=== PATIENT | female | born 1985 | race Caucasian/White ===

== ENCOUNTER 2016-12-17 10:51 | Emergency (ER) | payer OTHER ==
--- NOTE | 2016-12-17 11:12 | EDM.PDOC ---
ED HPI GENERAL MEDICAL PROBLEM - General Chief Complaint: Lower Extremity Injury/Pain Stated Complaint: HURT RIGHT FOOT Time Seen by Provider: 12/17/16 11:11 Source of Information: Reports: Patient - History of Present Illness INITIAL COMMENTS - FREE TEXT/NARRATIVE: HISTORY AND PHYSICAL: History of present illness: Patient with right foot pain unable bear weight due to pain rates 5 out of 10 nonradiating denies injury or trauma, pain has been present for 1 week increasing in severity. Patient predominantly worse flip-flop type shoes pain is been getting worse over the last week as stated x-ray and lab are negative. There is component or possibility of plantar fasciitis however over the last week intensive been continuous and worse with any weightbearing not necessarily related to the first heel strike of the day. She does note some improvement throughout the night after being off of her foot but has a PE pain immediately on walking and then continuous throughout the day toward now she is unable to bear weight due to pain. No fever nausea vomiting chills sweats Review of systems: As per history of present illness and below otherwise all systems reviewed and negative. Past medical history: As per history of present illness and as reviewed below otherwise noncontributory. Surgical history: As per history of present illness and as reviewed below otherwise noncontributory. Social history: No reported history of drug or alcohol abuse. Family history: As per history of present illness and as reviewed below otherwise noncontributory. Physical exam: HEENT: Atraumatic, normocephalic, pupils reactive, negative for conjunctival pallor or scleral icterus, mucous membranes moist, throat clear, neck supple, nontender, trachea midline. Lungs: Clear to auscultation, breath sounds equal bilaterally, chest nontender. Heart: S1S2, regular, negative for clicks, rubs, or JVD. Abdomen: Soft, nondistended, nontender. Negative for masses or hepatosplenomegaly. Negative for costovertebral tenderness. Pelvis: Stable nontender. Genitourinary: Deferred. Rectal: Deferred. Extremities: Atraumatic, negative for cords or calf pain. Neurovascular unremarkable. Neuro: Awake, alert, oriented. Cranial nerves II through XII unremarkable. Cerebellum unremarkable. Motor and sensory unremarkable throughout. Exam nonfocal. Right foot unaffected above the ankle tender across the dorsum and plantar surface the exception his heel and toes are no pain associated with heel and toes no redness warmth or exudate entirely neurovascularly intact, she is tender with pressure applied to the plantar tendon sheath Diagnostics: []Right foot 3 views CBC, uric acid Therapeutics: []Crutches as needed Ibuprofen 400-800 mg 3 times daily 7-10 days Follow-up with podiatry Appropriate quality footwear as discussed Return if symptoms persist or worse Impression: []Right foot pain Definitive disposition and diagnosis as appropriate pending reevaluation and review of above. Right Feet Pain Score (Numeric/FACES): 6 - Related Data Allergies Allergy/AdvReac Type Severity Reaction Status Date / Time No Known Allergies Allergy Verified 12/17/16 11:00 Home Meds: Home Meds . 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 Musculoskeletal History: Reports: None Neurological History: Reports: None Psychiatric History: Reports: None Endocrine/Metabolic History: Reports: None Hematologic History: Reports: None Immunologic History: Reports: None Oncologic (Cancer) History: Reports: None Dermatologic History: Reports: None - Infectious Disease History Infectious Disease History: Reports: Chicken Pox - Past Surgical History Head Surgeries/Procedures: Reports: None HEENT Surgical History: Reports: None Cardiovascular Surgical History: Reports: None Respiratory Surgical History: Reports: None GI Surgical History: Reports: None Female Surgical History: Reports: None Endocrine Surgical History: Reports: None Neurological Surgical History: Reports: None Musculoskeletal Surgical History: Reports: None Dermatological Surgical History: Reports: None Social & Family History - Family History Family Medical History: Noncontributory - Tobacco Use Smoking Status *Q: Never Smoker - Caffeine Use Caffeine Use: Reports: None - Recreational Drug Use Recreational Drug Use: No Review of Systems - Review of Systems Review Of Systems: ROS reveals no pertinent complaints other than HPI. ED EXAM, GENERAL - Physical Exam Exam: See Below Course - Vital Signs Last Recorded V/S: Last Vital Signs Temp 36.1 C 12/17/16 11:00 Pulse 97 12/17/16 11:00 Resp 18 12/17/16 11:00 BP 123/78 12/17/16 11:00 Pulse Ox 99 12/17/16 11:00 - Orders/Labs/Meds Orders: Active Orders 24 hr Category Date Time Status Foot Comp Min 3V Rt [CR] Stat Exams 12/17/16 11:10 Taken Labs: Laboratory Tests 12/17/16 12/17/16 Range/Units 11:17 11:17 WBC 7.84 (4.0-11.0) K/uL RBC 4.44 (4.30-5.90) M/uL Hgb 13.5 (12.0-16.0) g/dL Hct 39.7 (36.0-46.0) % MCV 89.4 (80.0-98.0) fL MCH 30.4 (27.0-32.0) pg MCHC 34.0 (31.0-37.0) g/dL RDW Std Deviation 40.7 (28.0-62.0) fl RDW Coeff of Norberto 13 (11.0-15.0) % Plt Count 255 (150-400) K/uL MPV 9.60 (7.40-12.00) fL Nucleated RBC % 0.0 /100WBC Nucleated RBCs # 0 K/uL Uric Acid 3.9 (2.1-6.2) mg/dL Departure - Departure Time of Disposition: 12:03 Disposition: Home, Self-Care 01 Condition: Good Clinical Impression: Foot pain, Plantar fasciitis of right foot - Discharge Information Referrals: PCP,None [Primary Care Provider] - Forms: ED Department Discharge Additional Instructions: Quality footwear with good arch support Crutches to use as needed Ibuprofen 400 mg by mouth 3 times daily 7-10 days 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 This information is to outline your options for follow-up care. We provide all patients seen in our emergency department with a follow-up referral. The need for follow-up, as well as the timing and circumstances, are variable depending upon the specifics of your emergency department visit. If you don't have a primary care physician on staff, we will provide you with a referral. We always advise you to contact your personal physician following an emergency department visit to inform them of the circumstance of the visit and for follow-up with them and/or the need for any referrals to a consulting specialist. The emergency department will also refer you to a specialist when appropriate. This referral assures that you have the opportunity for follow-up care with a specialist. All of these measure are taken in an effort to provide you with optimal care, which includes your follow-up. Under all circumstances we always encourage you to contact your private physician who remains a resource for coordinating your care. When calling for follow-up care, please make the office aware that this follow-up is from your recent emergency room visit. If for any reason you are refused follow-up, please contact the [facility] emergency department at and asked to speak to the emergency department charge nurse. - My Orders Last 24 Hours: My Active Orders 12/17/16 11:10 Foot Comp Min 3V Rt [CR] Stat - Assessment/Plan Last 24 Hours: My Active Orders 12/17/16 11:10 Foot Comp Min 3V Rt [CR] Stat
[2016-12-17 12:13] VITALS: BP 117/68
--- NOTE | 2016-12-20 13:20 | CR ---
EXAM DATE: 12/17/16 PATIENT'S AGE: 31 Patient: MALINDA ARTEAGA Facility: [place], [place] Site . Site : 1985 Study: XRay Extremity Right [id number]/2/2017 11:45:37 AM Ordering Physician: Иван Espinoza Final Report: Indication: Pain. Technique: Three views. Impression: Negative. Dictated by Mansoor Tolbert MD @ Dec 17 2016 11:47AM (Electronic Signature) Report Signed by Proxy. [facility]
== END 2016-12-17 12:11 | disposition home or self-care (01) ==
LOC: MW.ED 10:51
DX: M72.2 Plantar fascial fibromatosis (principal)
CPT/HCPCS: 36415; 73630-26-RT; 73630-RT; 84550; 85027; 99282; 99283

== ENCOUNTER 2017-06-11 20:33 | Emergency (ER) | payer OTHER ==
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
[2017-06-11 21:15] VITALS: BP 131/92
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
== END 2017-06-11 20:48 | disposition other institution (70) ==
LOC: MW.ED 20:33 → MW.OB 21:02
DX: O9A.213 Injury, poisoning and certain other consequences of external causes complicating pregnancy, third trimester (principal); S00.511A Abrasion of lip, initial encounter; V49.9XXA Car occupant (driver) (passenger) injured in unspecified traffic accident, initial encounter; Y92.410 Unspecified street and highway as the place of occurrence of the external cause; Z3A.29 29 weeks gestation of pregnancy
CPT/HCPCS: 76805; 76805-26; 99283; 99285-25

== ENCOUNTER 2017-08-20 01:30 | Inpatient (IN) | payer OTHER ==
[2017-08-20] MEDS ORDERED: Misoprostol 200 MCG Tab PO PRN (01:39)
[2017-08-20] MEDS ORDERED: Nalbuphine 10 MG/1 ML Vial IVPUSH PRN (01:39)
[2017-08-20] MEDS ORDERED: Sodium Chloride 0.9% 10 ML Syringe FLUSH PRN (01:39)
[2017-08-20] MEDS ORDERED: Methylergonovine 0.2 MG/1 ML Amp IM PRN (01:39)
[2017-08-20] MEDS ORDERED: Tranexamic Acid 1,000 MG in Sodium Chloride 0.9% 100 ML IV PRN (01:39)
[2017-08-20] MEDS ORDERED: Sodium Chloride 0.9% 2.5 ML Syringe FLUSH PRN (01:39)
[2017-08-20] MEDS ORDERED: Lidocaine 1% 50 ML MDV INJECT PRN (01:39)
[2017-08-20] MEDS ORDERED: Terbutaline 1 MG/ML SDV SUBCUT PRN (01:39)
[2017-08-20] MEDS ORDERED: Carboprost Tromethamine 250 MCG/1 ML Amp IM PRN (01:39)
[2017-08-20] MEDS ORDERED: Water For Irrigation,Sterile 1,000 ML Container IRR PRN (01:39)
[2017-08-20] MEDS ORDERED: Oxytocin/0.9 % Sodium Chloride 30 UNIT/500 ML BAG IV SCH ×2 (01:45)
[2017-08-20] MEDS: Misoprostol 25 MCG (1/4 of 100 MCG) Tab PO PRN ×2 (02:32→10:32)
[2017-08-20] MEDS: Misoprostol 25 MCG (1/4 of 100 MCG) Tab VAG PRN ×2 (02:32→10:32)
[2017-08-20] MEDS ORDERED: Butorphanol 1 MG/ML SDV ONE (06:56)
[2017-08-20] MEDS: Butorphanol 1 MG/ML SDV IVPUSH PRN ×2 (07:08→13:38)
--- NOTE | 2017-08-20 10:03 | PCM.LDHP ---
L&D History of Present Illness - General Date of Service: 08/20/17 Admit Problem/Dx: Patient Status Order with Admit Dx/Problem 08/20/17 01:39 Patient Status [ADT] Routine Admission Diagnosis/Problem Admission Diagnosis/Problem - planned Source of Information: Patient History Limitations: Reports: No Limitations - History of Present Illness Pain Score: 7 Improves with: Reports: None Worsens with: Reports: None Associated Symptoms: Reports: N - Related Data Allergies/Adverse Reactions: Allergies Allergy/AdvReac Type Severity Reaction Status Date / Time No Known Allergies Allergy Verified 08/20/17 03:42 Home Medications: Home Meds #103/Iron Fumarate/Fa [ ] 1 tab PO DAILY 06/11/17 [ History] Sertraline [Zoloft] 25 mg PO DAILY 08/20/17 [History] Past Medical History HEENT History: Reports: None Cardiovascular History: Reports: None Respiratory History: Reports: None Gastrointestinal History: Reports: None Genitourinary History: Reports: None 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: Musculoskeletal History: Reports: None Neurological History: Reports: None Psychiatric History: Reports: Other (See Below) Other Psychiatric History: depression Endocrine/Metabolic History: Reports: None Hematologic History: Reports: None Immunologic History: Reports: None Oncologic (Cancer) History: Reports: None Dermatologic History: Reports: None - Infectious Disease History Infectious Disease History: Reports: Chicken Pox - Past Surgical History Head Surgeries/Procedures: Reports: None HEENT Surgical History: Reports: Other (See Below) Other HEENT Surgeries/Procedures: Humble teeth extraction Cardiovascular Surgical History: Reports: None Respiratory Surgical History: Reports: None GI Surgical History: Reports: None Female Surgical History: Reports: None Endocrine Surgical History: Reports: None Neurological Surgical History: Reports: None Musculoskeletal Surgical History: Reports: None Dermatological Surgical History: Reports: None Social & Family History - Family History Family Medical History: Noncontributory Cardiac: Reports: Hypertension, [place] Endocrine/Metabolic: Reports: Diabetes, Type I, Diabetes, type II Oncologic: Reports: Renal - Tobacco Use Smoking Status *Q: Former Smoker Used Tobacco, but Quit: Yes Month/Year Tobacco Last Used: 2013 Second Hand Smoke Exposure: No - Caffeine Use Caffeine Use: Reports: Coffee, Energy Drinks, Tea - Recreational Drug Use Recreational Drug Use: No H&P Review of Systems - Review of Systems: Review Of Systems: See Below General: Reports: No Symptoms HEENT: Reports: No Symptoms Pulmonary: Reports: No Symptoms Cardiovascular: Reports: No Symptoms Gastrointestinal: Reports: No Symptoms Genitourinary: Reports: No Symptoms Musculoskeletal: Reports: No Symptoms Skin: Reports: No Symptoms Psychiatric: Reports: No Symptoms Neurological: Reports: No Symptoms Hematologic/Lymphatic: Reports: No Symptoms Immunologic: Reports: No Symptoms L&D Exam - Exam Exam: See Below - Vital Signs Weight: 99.337 kg - OB Specific Contraction Intensity: Mild Movement: Active Heart Tones: Present Presentation: Vertex - Rojas Score Rojas Score Cervix Position: Midposition Rojas Score Consistency: Soft Rojas Score Effacement: 51-70% Rojas Score Dilation: 1-2 cm Rojas Score Infant's Station: -3 Rojas Score Total: 6 - Exam General: Alert, Oriented HEENT: PERRLA, Conjunctiva Clear, EACs Clear, EOMI, Hearing Intact, Mucosa Moist & Mackay, Nares Patent, Normal Nasal Septum, Posterior Pharynx Clear, TMs Clear Neck: Supple, Trachea Midline Lungs: Clear to Auscultation, Normal Respiratory Effort Cardiovascular: Regular Rate, Regular Rhythm GI/Abdominal Exam: Normal Bowel Sounds, Soft, Non-Tender, No Organomegaly, No Distention, No Abnormal Bruit, No Mass, Pelvis Stable Rectal Exam: Normal Exam, Normal Rectal Tone Genitourinary: Normal external exam, Normal bimanual exam, Normal speculum exam Back Exam: Normal Inspection, Full Range of Motion Extremities: Normal Inspection, Normal Range of Motion, Non-Tender, No Pedal Edema, Normal Capillary Refill Skin: Warm, Dry, Intact Neurological: Cranial Nerves Intact, Reflexes Equal Bilateral Psychiatric: Alert, Normal Affect, Normal Mood - Patient Data Lab Results Last 24 hrs: Laboratory Results - last 24 hr 08/20/17 08/20/17 Range/Units 02:00 02:00 WBC 11.77 H (4.0-11.0) K/uL RBC 3.63 L (4.30-5.90) M/uL Hgb 10.5 L (12.0-16.0) g/dL Hct 31.6 L (36.0-46.0) % MCV 87.1 (80.0-98.0) fL MCH 28.9 (27.0-32.0) pg MCHC 33.2 (31.0-37.0) g/dL RDW Std Deviation 42.6 (28.0-62.0) fl RDW Coeff of Norberto 14 (11.0-15.0) % Plt Count 183 (150-400) K/uL MPV 11.20 (7.40-12.00) fL Nucleated RBC % 0.0 /100WBC Nucleated RBCs # 0 K/uL Blood Type O NEGATIVE Antibody Screen NEGATIVE Result Diagrams: 08/20/17 02:00 Problem List Initiated/Reviewed/Updated: Yes Orders Last 24hrs: Active Orders 24 hr Category Date Time Status Patient Status [ADT] Routine ADT 08/20/17 01:39 Active Bedrest Bathroom Privileges [RC] ASDIRECTED Care 08/20/17 01:39 Active Communication Order [RC] ASDIRECTED Care 08/20/17 01:39 Active Communication Order [RC] ASDIRECTED Care 08/20/17 01:39 Active Communication Order [RC] ASDIRECTED Care 08/20/17 01:39 Active Heart Tones [RC] CONTINUOUS Care 08/20/17 01:39 Active Non Stress Test [RC] PER UNIT ROUTINE Care 08/20/17 01:39 Active May Shower [RC] ASDIRECTED Care 08/20/17 01:39 Active Notify Provider [RC] PRN Care 08/20/17 01:39 Active Notify Provider [RC] PRN Care 08/20/17 01:39 Active Notify Provider [RC] PRN Care 08/20/17 01:39 Active Notify Provider [RC] STAT Care 08/20/17 01:39 Active Oxygen Therapy [RC] ASDIRECTED Care 08/20/17 01:39 Active Up ad Yessica [RC] ASDIRECTED Care 08/20/17 01:39 Active Vaginal Exam [RC] PRN Care 08/20/17 01:39 Active Vaginal Exam [RC] PRN Care 08/20/17 01:39 Active Vital Signs [RC] PER UNIT ROUTINE Care 08/20/17 01:39 Active Vital Signs [RC] PER UNIT ROUTINE Care 08/20/17 01:39 Active Clear Liquid Diet [DIET] Diet 08/20/17 Breakfast Active Butorphanol [Stadol] Med 08/20/17 06:44 Active 1 mg IVPUSH Q1H PRN Carboprost Tromethamine [Hemabate DS] Med 08/20/17 01:39 Active 250 mcg IM ASDIRECTED PRN Lactated Ringers [Ringers, Lactated] 1,000 ml Med 08/20/17 01:45 Active IV ASDIRECTED Lidocaine 1% [Xylocaine 1%] Med 08/20/17 01:39 Active 50 ml INJECT .ONCE PRN Methylergonovine [Methergine] Med 08/20/17 01:39 Active 0.2 mg IM ASDIRECTED PRN Misoprostol [Cytotec] Med 08/20/17 01:39 Active 200 mcg PO .ONCE PRN Misoprostol [Cytotec] Med 08/20/17 02:15 Active 25 mcg PO Q4H PRN Misoprostol [Cytotec] Med 08/20/17 02:15 Active 25 mcg VAG Q4H PRN Nalbuphine [Nubain] Med 08/20/17 01:39 Active 10 mg IVPUSH Q1H PRN Oxytocin/0.9 % Sodium Chloride [Oxytocin 30 Unit/500 ML Med 08/20/17 01:45 Active -NS] 30 unit in 500 ml IV TITRATE Oxytocin/0.9 % Sodium Chloride [Oxytocin 30 Unit/500 ML Med 08/20/17 01:45 Active -NS] 30 unit in 500 ml IV TITRATE Sodium Chloride 0.9% [Saline Flush] Med 08/20/17 01:39 Active 10 ml FLUSH ASDIRECTED PRN Sodium Chloride 0.9% [Saline Flush] Med 08/20/17 01:39 Active 2.5 ml FLUSH ASDIRECTED PRN Terbutaline [Brethine] Med 08/20/17 01:39 Active 0.25 mg SUBCUT ASDIRECTED PRN Tranexamic Acid [Cyklokapron] 1,000 mg Med 08/20/17 01:39 Active Sodium Chloride 0.9% [Normal Saline] 100 ml IV ONETIME Water For Irrigation,Sterile [Sterile Water for Med 08/20/17 01:39 Active Irrigation] 1,000 ml IRR ASDIRECTED PRN Scalp Electrode [WOMSER] Per Unit Routine Oth 08/20/17 01:39 Ordered Medication Administration Instruction [OM.PC] Q3H Oth 08/20/17 01:45 Ordered Peripheral IV Insertion Adult [OM.PC] Routine Oth 08/20/17 01:39 Ordered Resuscitation Status Routine Resus Stat 08/20/17 01:39 Ordered Medication Orders Butorphanol Tartrate (Stadol) 1 mg IVPUSH Q1H PRN PRN Reason: Pain Last Admin: 08/20/17 07:08 Dose: 1 mg Carboprost Tromethamine (Hemabate Ds) 250 mcg IM ASDIRECTED PRN PRN Reason: Post Hemorrhage Lactated Ringer's (Ringers, Lactated) 1,000 mls @ 150 mls/hr IV ASDIRECTED FAY Oxytocin/Sodium Chloride (Oxytocin 30 Unit/500 Ml-Ns) 30 unit in 500 mls @ 250 mls/hr IV TITRATE FAY Oxytocin/Sodium Chloride (Oxytocin 30 Unit/500 Ml-Ns) 30 unit in 500 mls @ 2 mls/hr IV TITRATE FAY; Protocol Tranexamic Acid 1,000 mg/ (Sodium Chloride) 110 mls @ 660 mls/hr IV ONETIME PRN PRN Reason: Bleeding Lidocaine HCl (Xylocaine 1%) 50 ml INJECT .ONCE PRN PRN Reason: Laceration repair Methylergonovine Maleate (Methergine) 0.2 mg IM ASDIRECTED PRN PRN Reason: Post Hemorrhage Misoprostol (Cytotec) 200 mcg PO .ONCE PRN PRN Reason: Post Hemorrhage Misoprostol (Cytotec) 25 mcg VAG Q4H PRN PRN Reason: Cervical Ripening Last Admin: 08/20/17 02:32 Dose: 25 mcg Misoprostol (Cytotec) 25 mcg PO Q4H PRN PRN Reason: Cervical Ripening Last Admin: 08/20/17 02:32 Dose: 25 mcg Nalbuphine HCl (Nubain) 10 mg IVPUSH Q1H PRN PRN Reason: Pain (severe 7-10) Sodium Chloride (Saline Flush) 10 ml FLUSH ASDIRECTED PRN PRN Reason: Keep Vein Open Sodium Chloride (Saline Flush) 2.5 ml FLUSH ASDIRECTED PRN PRN Reason: Keep Vein Open Sterile Water (Sterile Water For Irrigation) 1,000 ml IRR ASDIRECTED PRN PRN Reason: delivery Terbutaline Sulfate (Brethine) 0.25 mg SUBCUT ASDIRECTED PRN PRN Reason: Tacysystole
[2017-08-20] MEDS: Lactated Ringers 1,000 ML IV SCH ×2 (15:00→16:10)
[2017-08-20] MEDS ORDERED: fentaNYL 100 MCG/2 ML SDV ONE (15:33)
[2017-08-20] MEDS ORDERED: Bupivacaine 0.25% 10 ML SDV ONE (15:33)
--- NOTE | 2017-08-20 17:24 | PCM.PREANE ---
Preanesthetic Assessment - Anesthesia/Transfusion/Family Hx Anesthesia History: Prior Anesthesia Without Reaction Family History of Anesthesia Reaction: No Transfusion History: No Prior Transfusion(s) - Review of Systems General: No Symptoms Pulmonary: No Symptoms Cardiovascular: No Symptoms Gastrointestinal: No Symptoms Neurological: No Symptoms Other: Reports: Depression, Anxiety - Physical Assessment NPO Status Date: 08/20/17 NPO Status Time: 15:00 (clear liquids) Pulse: 86 O2 Sat by Pulse Oximetry: 99 Respiratory Rate: 20 Blood Pressure: 133/92 (contraction) Height: 1.65 m Weight: 99.337 kg ASA Class: 2 - Lab Values: Laboratory Last Values WBC 11.77 K/uL (4.0-11.0) H 08/20/17 02:00 RBC 3.63 M/uL (4.30-5.90) L 08/20/17 02:00 Hgb 10.5 g/dL (12.0-16.0) L 08/20/17 02:00 Hct 31.6 % (36.0-46.0) L 08/20/17 02:00 MCV 87.1 fL (80.0-98.0) 08/20/17 02:00 MCH 28.9 pg (27.0-32.0) 08/20/17 02:00 MCHC 33.2 g/dL (31.0-37.0) 08/20/17 02:00 RDW Std Deviation 42.6 fl (28.0-62.0) 08/20/17 02:00 RDW Coeff of Norberto 14 % (11.0-15.0) 08/20/17 02:00 Plt Count 183 K/uL (150-400) 08/20/17 02:00 MPV 11.20 fL (7.40-12.00) 08/20/17 02:00 Nucleated RBC % 0.0 /100WBC 08/20/17 02:00 Nucleated RBCs # 0 K/uL 08/20/17 02:00 Blood Type O NEGATIVE 08/20/17 02:00 Antibody Screen NEGATIVE 08/20/17 02:00 - Allergies Allergies/Adverse Reactions: Allergies Allergy/AdvReac Type Severity Reaction Status Date / Time No Known Allergies Allergy Verified 08/20/17 03:42 PreAnesthesia Questionnaire HEENT History: Reports: None Cardiovascular History: Reports: None Respiratory History: Reports: None Gastrointestinal History: Reports: None Genitourinary History: Reports: None 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 OB/BYN History: Musculoskeletal History: Reports: None Neurological History: Reports: None Psychiatric History: Reports: Other (See Below) Other Psychiatric History: depression Endocrine/Metabolic History: Reports: None Hematologic History: Reports: None Immunologic History: Reports: None Oncologic (Cancer) History: Reports: None Dermatologic History: Reports: None - Infectious Disease History Infectious Disease History: Reports: Chicken Pox - Past Surgical History Head Surgeries/Procedures: Reports: None HEENT Surgical History: Reports: Other (See Below) Other HEENT Surgeries/Procedures: [place] teeth extraction Cardiovascular Surgical History: Reports: None Respiratory Surgical History: Reports: None GI Surgical History: Reports: None Female Surgical History: Reports: None Endocrine Surgical History: Reports: None Neurological Surgical History: Reports: None Musculoskeletal Surgical History: Reports: None Dermatological Surgical History: Reports: None - SUBSTANCE USE Smoking Status *Q: Former Smoker Tobacco Use Within Last Twelve Months: No Second Hand Smoke Exposure: No Recreational Drug Use History: No - HOME MEDS Home Medications: Home Meds #103/Iron Fumarate/Fa [ ] 1 tab PO DAILY 06/11/17 [ History] Sertraline [Zoloft] 25 mg PO DAILY 08/20/17 [History] - CURRENT (IN HOUSE) MEDS Current Meds: Current Medications Carboprost Tromethamine (Hemabate Ds) 250 mcg IM ASDIRECTED PRN PRN Reason: Post Hemorrhage Lactated Ringer's (Ringers, Lactated) 1,000 mls @ 150 mls/hr IV ASDIRECTED FAY Last Admin: 08/20/17 16:10 Dose: 150 mls/hr Oxytocin/Sodium Chloride (Oxytocin 30 Unit/500 Ml-Ns) 30 unit in 500 mls @ 250 mls/hr IV TITRATE FAY Oxytocin/Sodium Chloride (Oxytocin 30 Unit/500 Ml-Ns) 30 unit in 500 mls @ 2 mls/hr IV TITRATE FAY; Protocol Tranexamic Acid 1,000 mg/ (Sodium Chloride) 110 mls @ 660 mls/hr IV ONETIME PRN PRN Reason: Bleeding Lidocaine HCl (Xylocaine 1%) 50 ml INJECT .ONCE PRN PRN Reason: Laceration repair Methylergonovine Maleate (Methergine) 0.2 mg IM ASDIRECTED PRN PRN Reason: Post Hemorrhage Misoprostol (Cytotec) 200 mcg PO .ONCE PRN PRN Reason: Post Hemorrhage Misoprostol (Cytotec) 25 mcg VAG Q4H PRN PRN Reason: Cervical Ripening Last Admin: 08/20/17 10:32 Dose: 25 mcg Misoprostol (Cytotec) 25 mcg PO Q4H PRN PRN Reason: Cervical Ripening Last Admin: 08/20/17 10:32 Dose: 25 mcg Nalbuphine HCl (Nubain) 10 mg IVPUSH Q1H PRN PRN Reason: Pain (severe 7-10) Sodium Chloride (Saline Flush) 10 ml FLUSH ASDIRECTED PRN PRN Reason: Keep Vein Open Sodium Chloride (Saline Flush) 2.5 ml FLUSH ASDIRECTED PRN PRN Reason: Keep Vein Open Sterile Water (Sterile Water For Irrigation) 1,000 ml IRR ASDIRECTED PRN PRN Reason: delivery Terbutaline Sulfate (Brethine) 0.25 mg SUBCUT ASDIRECTED PRN PRN Reason: Tacysystole Discontinued Medications Bupivacaine HCl (Sensorcaine-Mpf 0.25%) Confirm Administered Dose 10 ml .ROUTE .STK-MED ONE Stop: 08/20/17 15:34 Butorphanol Tartrate (Stadol) 1 mg IVPUSH Q1H PRN PRN Reason: Pain Last Admin: 08/20/17 13:38 Dose: 1 mg Butorphanol Tartrate (Stadol) Confirm Administered Dose 1 mg .ROUTE .STK-MED ONE Stop: 08/20/17 06:57 Fentanyl (Sublimaze) Confirm Administered Dose 100 mcg .ROUTE .STK-MED ONE Stop: 08/20/17 15:34 Fentanyl/Bupivacaine HCl (Gfmepklf-Mfgfx-Cs 2 Mcg/Ml-0.125%) Confirm Administered Dose 100 mls @ as directed EP .STK-MED ONE Stop: 08/20/17 15:34
--- NOTE | 2017-08-20 18:01 | PCM.SN ---
- Free Text/Narrative Note: in active labor, dilated 2-3cm request epidural for analgesia. Chart reviewed, labs acceptable, discussed, ? answered, understands risks and benefits. Wishes to proceed. Permit signed. Patient positioned sitting. Prep X 3 with Betadine Space ID'd via ELLA with 1ml NaCl/1ml air. 15:42 Catheter to 9cm without issues. Negative aspiration. 15:44 Test dose with 1.5% Lidocaine + 1:200K epi 4ml. Test negative 15:46 Bolus dose 6ml 0.25% bupivicaine + 100mcg Fentanyl over 3 minutes. 15:51-54 Epidural gtt started at 8ml/hr 6ml/bolus q10 4/hr max. 16:00 Tolerated well. Good analgesia. 16:10 BP 90/57 patient nauseated. Fluid bolus in progress. Epidural OFF. BP slowly back to 110 systolic. Epidural remained off. Block level ~ T8. Patient to complete. Stable. Requested to remain on standby.
[2017-08-20] MEDS ORDERED: Lanolin 100% Cream 7 GM Tube TOP PRN ×2 (18:22→19:30)
[2017-08-20] MEDS ORDERED: Ondansetron 4 MG/2 ML SDV IV PRN (18:22)
[2017-08-20] MEDS ORDERED: Acetaminophen/oxyCODONE 325-5 MG Tab PO PRN ×2 (18:22)
[2017-08-20] MEDS ORDERED: Bisacodyl 10 MG Supp RECTAL PRN ×2 (18:22→19:30)
[2017-08-20] MEDS ORDERED: diphenhydrAMINE 50 MG/ML SDV IVPUSH PRN (18:22)
[2017-08-20] MEDS ORDERED: Oxytocin 10 Units/1 ML SDV ONE (18:24)
[2017-08-20] MEDS ORDERED: Ketorolac 30 MG/ML SDV IVPUSH SCH (18:30)
[2017-08-20] MEDS ORDERED: Lactated Ringers 1,000 ML IV SCH (18:30)
[2017-08-20] MEDS ORDERED: Witch Hazel Medicated Pads 40/Jar TOP PRN (19:30)
[2017-08-20] MEDS ORDERED: Benzocaine/Menthol 20%-0.5% Spray 78 GM Cannister TOP PRN (19:30)
[2017-08-20] MEDS ORDERED: oxyCODONE 5 MG Tab PO PRN (19:30)
[2017-08-20] MEDS ORDERED: Docusate Sodium 100 MG Cap PO PRN (19:30)
[2017-08-20] MEDS ORDERED: Ibuprofen 400 MG Tab PO PRN (19:30)
[2017-08-20] MEDS ORDERED: Acetaminophen 500 MG Tab PO PRN ×2 (19:30)
[2017-08-20] MEDS ORDERED: Docusate Sodium 100 MG Cap PO SCH (21:00)
[2017-08-20] MEDS: Ibuprofen 800 MG Tab PO PRN (21:12)
--- NOTE | 2017-08-21 00:12 | OR ---
SURGEON: Jairo Quintana MD DATE OF PROCEDURE: DELIVERY NOTE Ms. Gonzalez is 31. She is para 1-0-0-1, previous normal spontaneous vaginal delivery. She is 39+ weeks. She is followed in our clinic primarily by our nurse personnel analyst. She is admitted for elective induction. The patient induced with Cytotec. She responded well to that and she had an artificial rupture of the membrane around 1:30 and then she continued to progress in labor. She had epidural anesthesia for labor analgesia. She became complete around 4:30 and the patient commenced pushing. Talita Garcia, the certified nurse personnel analyst and she has attended the delivery. The patient is pushed in excess of an hour and I was called to evaluate the patient because of insufficient pushings and for possible vacuum extraction. When I came and arrived, heart rate was category 1. Her vital sign was stable, the patient was vertex complete-complete and in straight OA position, and she is +2 station. After consulting with the patient and explaining the vacuum, she consented for it. [place] vacuum extraction is performed and with one push, the patient was able to deliver vaginally female fetus, cried immediately. The score reported to be 8 and 9 and the weight is not available at this time. The placenta delivered spontaneous, complete, and intact. There was a superficial labial laceration on the left labia and that was repaired by Talita Garcia without any problem. Estimated blood loss is 300 to 350 mL. There was no complication in the and in the labor process. heart rate was category 1 through the entire process of labor and delivery. KEITH / ROLF /[id number]
[2017-08-21] MEDS: Ibuprofen 800 MG Tab PO PRN (03:39)
--- NOTE | 2017-08-21 07:13 | PCM48HPAN ---
Post Anesthesia Note - EVALUATION WITHIN 48HRS OF ANESTHETIC Vital Signs in Normal Range: Yes Patient Participated in Evaluation: Yes Respiratory Function Stable: Yes Airway Patent: Yes Cardiovascular Function Stable: Yes Hydration Status Stable: Yes Pain Control Satisfactory: Yes Nausea and Vomiting Control Satisfactory: Yes Mental Status Recovered: Yes Pulse Rate: 88 Resp Rate: 16 Blood Pressure: 133/86 - COMMENTS/OBSERVATIONS Free Text/Narrative:: Doing well. No problems noted.
--- NOTE | 2017-08-21 08:18 | PCM.DCSUM1 ---
Discharge Summary - Hospital Course Free Text/Narrative:: Discharge home with infant. Follow up in 6 weeks or sooner if needed. - Discharge Data Discharge Date: 08/21/17 Discharge Disposition: Home, Self-Care 01 Condition: Good - Discharge Diagnosis/Problem(s) (1) Supervision of normal IUP (intrauterine ) in multigravida SNOMED Code(s): 315819733, [id number], 926381090 ICD Code: Z34.80 - ENCOUNTER FOR SUPRVSN OF NORMAL , UNSP TRIMESTER Status: Acute Priority: High Current Visit: Yes Qualifiers: Trimester: third trimester Qualified Code(s): Z34.83 - Encounter for supervision of other normal , third trimester (2) (normal spontaneous vaginal delivery) SNOMED Code(s): 12125144 ICD Code: O80 - ENCOUNTER FOR FULL-TERM UNCOMPLICATED DELIVERY Status: Acute Priority: High Current Visit: Yes - Patient Instructions Diet: Usual Diet as Tolerated Activity: As Tolerated, No Strenuous Activities, Rest and Relax Today Driving: May Drive Today Showering/Bathing: May Shower Wound/Incision Care: Keep Operative Site/Wound Site Clean and Dry Notify Provider of: Fever, Increased Pain, Swelling and Redness, Nausea and/or Vomiting Other/Special Instructions: Discharge home with infant. Follow up in 6 weeks or sooner if needed. - Discharge Plan Home Medications: Home Meds #103/Iron Fumarate/Fa [ ] 1 tab PO DAILY 06/11/17 [ History] Sertraline [Zoloft] 25 mg PO DAILY 08/20/17 [History] - General Info Date of Service: 08/21/17 Admission Dx/Problem (Free Text: Patient Status Order with Admit Dx/Problem 08/20/17 01:39 Patient Status [ADT] Routine Admission Diagnosis/Problem Admission Diagnosis/Problem - planned Functional Status: Reports: Pain Controlled, Tolerating Diet, Ambulating, Urinating - Review of Systems General: Reports: No Symptoms HEENT: Reports: No Symptoms Pulmonary: Reports: No Symptoms Cardiovascular: Reports: No Symptoms Gastrointestinal: Reports: No Symptoms Genitourinary: Reports: No Symptoms Musculoskeletal: Reports: No Symptoms Skin: Reports: No Symptoms Neurological: Reports: No Symptoms Psychiatric: Reports: No Symptoms - Patient Data Vitals - Most Recent: Last Vital Signs Temp 36.6 C 08/21/17 03:30 Pulse 88 08/21/17 07:13 Resp 16 08/21/17 07:13 BP 133/86 08/21/17 07:13 Pulse Ox 97 08/21/17 03:30 Weight - Most Recent: 99.337 kg Lab Results - Last 24 hrs: Laboratory Results - last 24 hr 08/20/17 Range/Units 20:28 Screen NEGATIVE (NEGATIVE) RhIG Candidate? YES Rhogam Indicated YES, BABY RH POS H Med Orders - Current: Current Medications Acetaminophen (Tylenol Extra Strength) 500 mg PO Q4H PRN PRN Reason: Pain Acetaminophen (Tylenol Extra Strength) 1,000 mg PO Q4H PRN PRN Reason: Pain Benzocaine/Menthol (Dermoplast Pain Relief 20%-0.5% [place]) 78 gm TOP ASDIRECTED PRN PRN Reason: Perineal Comfort Measure Last Admin: 08/20/17 19:46 Dose: 1 canister Bisacodyl (Dulcolax) 10 mg RECTAL .ONCE PRN PRN Reason: Constipation Carboprost Tromethamine (Hemabate Ds) 250 mcg IM ASDIRECTED PRN PRN Reason: Post Hemorrhage Docusate Sodium (Colace) 100 mg PO BID PRN PRN Reason: Constipation Last Admin: 08/20/17 19:45 Dose: 100 mg Emollient Ointment (Lansinoh Hpa) 0 gm TOP ASDIRECTED PRN PRN Reason: Sore Nipples Last Admin: 08/20/17 22:53 Dose: 1 tube Lactated Ringer's (Ringers, Lactated) 1,000 mls @ 150 mls/hr IV ASDIRECTED FAY Last Admin: 08/20/17 16:10 Dose: 150 mls/hr Oxytocin/Sodium Chloride (Oxytocin 30 Unit/500 Ml-Ns) 30 unit in 500 mls @ 250 mls/hr IV TITRATE FAY Oxytocin/Sodium Chloride (Oxytocin 30 Unit/500 Ml-Ns) 30 unit in 500 mls @ 2 mls/hr IV TITRATE FAY; Protocol Tranexamic Acid 1,000 mg/ (Sodium Chloride) 110 mls @ 660 mls/hr IV ONETIME PRN PRN Reason: Bleeding Ibuprofen (Motrin) 400 mg PO Q4H PRN PRN Reason: Pain Ibuprofen (Motrin) 800 mg PO Q6H PRN PRN Reason: Pain Last Admin: 08/21/17 03:39 Dose: 800 mg Lidocaine HCl (Xylocaine 1%) 50 ml INJECT .ONCE PRN PRN Reason: Laceration repair Methylergonovine Maleate (Methergine) 0.2 mg IM ASDIRECTED PRN PRN Reason: Post Hemorrhage Misoprostol (Cytotec) 200 mcg PO .ONCE PRN PRN Reason: Post Hemorrhage Misoprostol (Cytotec) 25 mcg VAG Q4H PRN PRN Reason: Cervical Ripening Last Admin: 08/20/17 10:32 Dose: 25 mcg Misoprostol (Cytotec) 25 mcg PO Q4H PRN PRN Reason: Cervical Ripening Last Admin: 08/20/17 10:32 Dose: 25 mcg Nalbuphine HCl (Nubain) 10 mg IVPUSH Q1H PRN PRN Reason: Pain (severe 7-10) Oxycodone HCl (Oxycodone) 5 mg PO Q2H PRN PRN Reason: Pain Sodium Chloride (Saline Flush) 10 ml FLUSH ASDIRECTED PRN PRN Reason: Keep Vein Open Sodium Chloride (Saline Flush) 2.5 ml FLUSH ASDIRECTED PRN PRN Reason: Keep Vein Open Sterile Water (Sterile Water For Irrigation) 1,000 ml IRR ASDIRECTED PRN PRN Reason: delivery Terbutaline Sulfate (Brethine) 0.25 mg SUBCUT ASDIRECTED PRN PRN Reason: Tacysystole Witch Catherine (Tucks) 1 pad TOP ASDIRECTED PRN PRN Reason: comfort care Last Admin: 08/20/17 19:45 Dose: 1 tub Discontinued Medications Bupivacaine HCl (Sensorcaine-Mpf 0.25%) Confirm Administered Dose 10 ml .ROUTE .STK-MED ONE Stop: 08/20/17 15:34 Butorphanol Tartrate (Stadol) 1 mg IVPUSH Q1H PRN PRN Reason: Pain Last Admin: 08/20/17 13:38 Dose: 1 mg Butorphanol Tartrate (Stadol) Confirm Administered Dose 1 mg .ROUTE .STK-MED ONE Stop: 08/20/17 06:57 Fentanyl (Sublimaze) Confirm Administered Dose 100 mcg .ROUTE .STK-MED ONE Stop: 08/20/17 15:34 Fentanyl/Bupivacaine HCl (Gztxxejy-Cwbwj-My 2 Mcg/Ml-0.125%) Confirm Administered Dose 100 mls @ as directed EP .STK-MED ONE Stop: 08/20/17 15:34 Oxytocin (Pitocin) Confirm Administered Dose 10 unit .ROUTE .STK-MED ONE Stop: 08/20/17 18:25 Last Admin: 08/20/17 18:23 Dose: 10 unit - Exam General: Reports: Alert, Oriented, Cooperative, No Acute Distress Lungs: Reports: Normal Respiratory Effort GI/Abdominal Exam: Normal Bowel Sounds, Soft, Non-Tender, No Organomegaly, No Distention, No Abnormal Bruit, No Mass, Pelvis Stable (Female) Exam: Vaginal Bleeding Rectal (Female) Exam: Deferred Back Exam: Reports: Normal Inspection Extremities: Normal Inspection, Normal Range of Motion, Non-Tender, No Pedal Edema, Normal Capillary Refill Skin: Reports: Warm, Dry, Intact Wound/Incisions: Reports: Healing Well Neurological: Reports: No New Focal Deficit, Normal Speech, Normal Tone Psy/Mental Status: Reports: Alert, Normal Affect, Normal Mood
[2017-08-21 11:33] VITALS: BP 132/71
[2017-08-21] MEDS ORDERED: Ibuprofen 800 MG Tab PO PRN (20:00)
== END 2017-08-21 22:00 | disposition home or self-care (01) | DRG 775 ==
LOC: MW.OBCHECK 01:30 → MW.OB 01:34 → MW.OBCHECK 01:39 → OBSVTOIN 18:18
PROVIDERS: ADMIT Obstetrics & Gynecology; ATTEND Obstetrics & Gynecology
PROC: 10D07Z6 Extraction of Products of Conception, Vacuum, Via Natural or Artificial Opening (ICD-10-PCS; principal; 2017-08-20)
PROC: 3E0P7VZ Introduction of Hormone into Female Reproductive, Via Natural or Artificial Opening (ICD-10-PCS; 2017-08-20)
PROC: 10907ZC Drainage of Amniotic Fluid, Therapeutic from Products of Conception, Via Natural or Artificial Opening (ICD-10-PCS; 2017-08-20)
PROC: 0HQ9XZZ Repair Perineum Skin, External Approach (ICD-10-PCS; 2017-08-20)
DX: O70.0 First degree perineal laceration during delivery (principal); Z3A.39 39 weeks gestation of pregnancy; Z37.0 Single live birth
CPT/HCPCS: 36415; 59025; 59409; 85027; 85460; 86850; 86900; 86901; A9270-GY; J0595; J2590; J2790; J7120

== ENCOUNTER 2018-08-02 08:03 | Day surgery (SDC) | payer BC ==
[~2018-08-02 08:03] MED LIST: Lactated Ringers 1,000 ML IV SCH
[2018-08-02] MEDS ORDERED: fentaNYL 250 MCG/5 ML SDV ONE (08:43)
[2018-08-02] MEDS ORDERED: Midazolam 1 MG/ML 2 ML SDV ONE (08:43)
[2018-08-02] MEDS ORDERED: Lidocaine 2% 5 ML SDV ONE (08:43)
[2018-08-02] MEDS ORDERED: Propofol 200 MG/20 ML SDV ONE (08:43)
[2018-08-02] MEDS ORDERED: Ondansetron 4 MG/2 ML SDV ONE (08:43)
--- NOTE | 2018-08-02 08:43 | PCM.PREANE ---
Preanesthetic Assessment - Anesthesia/Transfusion/Family Hx Anesthesia History: Prior Anesthesia Without Reaction Family History of Anesthesia Reaction: No Transfusion History: No Prior Transfusion(s) - Review of Systems General: No Symptoms Pulmonary: No Symptoms Cardiovascular: No Symptoms Gastrointestinal: No Symptoms Neurological: No Symptoms Other: Reports: None - Physical Assessment O2 Sat by Pulse Oximetry: 96 Respiratory Rate: 16 Vital Signs: Last Vital Signs Temp 96.6 F 08/02/18 08:25 Pulse 87 08/02/18 08:25 Resp 16 08/02/18 08:25 BP 117/76 08/02/18 08:25 Pulse Ox 96 08/02/18 08:25 Height: 5 ft 5 in Weight: 88.451 kg ASA Class: 1 Mental Status: Alert & Oriented x3 Airway Class: Mallampati = 2 Dentition: Reports: Normal Dentition ROM/Head Extension: Full Lungs: Clear to Auscultation, Normal Respiratory Effort Cardiovascular: Regular Rate, Regular Rhythm - Allergies Allergies/Adverse Reactions: Allergies Allergy/AdvReac Type Severity Reaction Status Date / Time No Known Allergies Allergy Verified 07/30/18 15:34 - Blood Blood Available: No - Anesthesia Plan Pre-Op Medication Ordered: None - Acknowledgements Anesthesia Type Planned: General Anesthesia Pt an Appropriate Candidate for the Planned Anesthesia: Yes Alternatives and Risks of Anesthesia Discussed w Pt/Guardian: Yes Pt/Guardian Understands and Agrees with Anesthesia Plan: Yes PreAnesthesia Questionnaire HEENT History: Reports: Other (See Below) Other HEENT History: wears glasses Cardiovascular History: Reports: None Respiratory History: Reports: None Gastrointestinal History: Reports: None Genitourinary History: Reports: None 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/BYN History: Musculoskeletal History: Reports: None Neurological History: Reports: Other (See Below) Other Neuro History: hx of motion sickness Psychiatric History: Reports: Other (See Below) Other Psychiatric History: depression Endocrine/Metabolic History: Reports: Obesity/BMI 30+ Hematologic History: Reports: None Immunologic History: Reports: None Oncologic (Cancer) History: Reports: None Dermatologic History: Reports: None - Infectious Disease History Infectious Disease History: Reports: Chicken Pox - Past Surgical History Head Surgeries/Procedures: Reports: None HEENT Surgical History: Reports: Oral Surgery Other HEENT Surgeries/Procedures: wisdom teeth - SUBSTANCE USE Smoking Status *Q: Former Smoker Tobacco Use Within Last Twelve Months: Cigarettes Recreational Drug Use History: No - HOME MEDS Home Medications: Home Meds Ibuprofen [Motrin] 800 mg PO ASDIRECTED PRN 07/30/18 [History] - CURRENT (IN HOUSE) MEDS Current Meds: Current Medications Lactated Ringer's (Ringers, Lactated) 1,000 mls @ 100 mls/hr IV ASDIRECTED FAY
[2018-08-02] MEDS ORDERED: Sodium Chloride 0.9% 10 ML SDV IV PRN (08:59)
[2018-08-02] MEDS ORDERED: Atropine 0.1 MG/ML 10 ML Syringe IVPUSH PRN ×2 (08:59)
[2018-08-02] MEDS ORDERED: 50% Dextrose in Water 50 ML Syringe IVPUSH PRN (08:59)
[2018-08-02] MEDS ORDERED: fentaNYL 100 MCG/2 ML SDV IVPUSH PRN (08:59)
[2018-08-02] MEDS ORDERED: Sodium Chloride 0.9% 10 ML Syringe FLUSH PRN (08:59)
[2018-08-02] MEDS ORDERED: Naloxone 0.4 MG/ML Syringe IVPUSH PRN (08:59)
[2018-08-02] MEDS ORDERED: Sodium Chloride 0.9% 2.5 ML Syringe FLUSH PRN (08:59)
[2018-08-02] MEDS ORDERED: Albuterol 0.083% 2.5 MG/3 ML Neb Soln NEB PRN (08:59)
[2018-08-02] MEDS ORDERED: EPINEPHrine 1:10,000 1 MG/10 ML Syringe IVPUSH PRN (08:59)
--- NOTE | 2018-08-02 11:08 | PCM.POSTAN ---
POST ANESTHESIA ASSESSMENT - MENTAL STATUS Mental Status: Alert, Oriented - RESPIRATORY Respiratory Status: Respiratory Rate WNL, Airway Patent, O2 Saturation Stable - CARDIOVASCULAR CV Status: Pulse Rate WNL, Blood Pressure Stable - GASTROINTESTINAL GI Status: No Symptoms - PAIN Pain Score: 0 - POST OP HYDRATION Hydration Status: Adequate & Stable
--- NOTE | 2018-08-02 11:16 | PCM48HPAN ---
Post Anesthesia Note - EVALUATION WITHIN 48HRS OF ANESTHETIC Vital Signs in Normal Range: Yes Patient Participated in Evaluation: Yes Respiratory Function Stable: Yes Airway Patent: Yes Cardiovascular Function Stable: Yes Hydration Status Stable: Yes Pain Control Satisfactory: Yes Nausea and Vomiting Control Satisfactory: Yes Mental Status Recovered: Yes Resp Rate: 12
--- NOTE | 2018-08-02 11:16 | CR ---
EXAMINATION: Abdomen HISTORY: IUD COMPARISON: None TECHNIQUE: AP view FINDINGS: There is an IUD projecting over the pelvis. There is a nonobstructive bowel gas pattern. No abnormal calcifications. Visualized osseous structures appear normal. IMPRESSION: 1. IUD projecting over the mid pelvis.
[2018-08-02 11:32] VITALS: BP 111/73
[2018-08-02] MEDS ORDERED: Ketorolac 30 MG/ML SDV IVPUSH ONE (11:56)
[2018-08-02] MEDS ORDERED: Acetaminophen/oxyCODONE 325-5 MG Tab PO PRN ×2 (11:56)
[2018-08-02] MEDS ORDERED: Promethazine 25 MG/ML SDV IM PRN (11:56)
[2018-08-02] MEDS ORDERED: Ketorolac 30 MG/ML SDV IVPUSH PRN (11:56)
[2018-08-02] MEDS ORDERED: Morphine 4 MG/ML Syringe IVPUSH PRN (11:56)
[2018-08-02] MEDS ORDERED: Ondansetron 4 MG/2 ML SDV IVPUSH PRN (11:56)
--- NOTE | 2018-08-02 12:01 | PCM.OPNOTE ---
- General Post-Op/Procedure Note Date of Surgery/Procedure: 08/02/18 Operative Procedure(s): Hystroscopy Pre Op Diagnosis: Lost IUD Post-Op Diagnosis: Same Anesthesia Technique: General LMA Primary Surgeon: Jairo Quintana EBL in mLs: 25 Complications: None Condition: Good Free Text/Narrative:: Intake & Output 08/01/18 08/02/18 08/02/18 22:59 06:59 14:59 Intake Total 800 Output Total 30 Balance 770
--- NOTE | 2018-08-02 12:02 | PCM.DCSUM1 ---
Discharge Summary - Hospital Course Diagnosis: Stroke: No - Discharge Data Discharge Date: 08/02/18 Discharge Disposition: Home, Self-Care 01 Condition: Good - Patient Summary/Data Operative Procedure(s) Performed: Hystroscopy - Patient Instructions Diet: Usual Diet as Tolerated, Regular Diet as Tolerated Activity: As Tolerated, Rest and Relax Today Driving: Do Not Drive Showering/Bathing: May Shower Notify Provider of: Fever, Increased Pain - Discharge Plan Home Medications: Home Meds Ibuprofen [Motrin] 800 mg PO ASDIRECTED PRN 07/30/18 [History] - Discharge Summary/Plan Comment DC Time >30 min.: Yes - General Info Date of Service: 08/02/18 Functional Status: Reports: Pain Controlled - Review of Systems General: Reports: No Symptoms HEENT: Reports: No Symptoms Pulmonary: Reports: No Symptoms Cardiovascular: Reports: No Symptoms Gastrointestinal: Reports: No Symptoms Genitourinary: Reports: No Symptoms Musculoskeletal: Reports: No Symptoms Skin: Reports: No Symptoms Neurological: Reports: No Symptoms Psychiatric: Reports: No Symptoms - Patient Data Vitals - Most Recent: Last Vital Signs Temp 36.0 C 08/02/18 11:15 Pulse 66 08/02/18 11:15 Resp 12 08/02/18 11:16 BP 111/73 08/02/18 11:15 Pulse Ox 97 08/02/18 11:15 Weight - Most Recent: 88.451 kg I&O - Last 24 hours: Intake & Output 08/01/18 08/02/18 08/02/18 22:59 06:59 14:59 Intake Total 800 Output Total 30 Balance 770 Lab Results - Last 24 hrs: Laboratory Results - last 24 hr 08/02/18 Range/Units 08:32 Urine HCG, Qual NEGATIVE (NEGATIVE) Med Orders - Current: Current Medications Ketorolac Tromethamine (Toradol) 30 mg IVPUSH ONETIME ONE Stop: 08/02/18 11:57 Ketorolac Tromethamine (Toradol) 30 mg IVPUSH Q6H PRN PRN Reason: Pain (severe 7-10) Stop: 08/07/18 11:57 Morphine Sulfate (Morphine) 4 mg IVPUSH Q2H PRN PRN Reason: Pain (severe 7-10) Ondansetron HCl (Zofran) 4 mg IVPUSH Q6H PRN PRN Reason: Nausea/Vomiting Oxycodone/Acetaminophen (Percocet 325-5 Mg) 1 tab PO Q4H PRN PRN Reason: Pain (moderate 4-6) Oxycodone/Acetaminophen (Percocet 325-5 Mg) 2 tab PO Q4H PRN PRN Reason: Pain (moderate 4-6) Promethazine HCl (Phenergan) 25 mg IM Q6H PRN PRN Reason: Nausea/Vomiting Discontinued Medications Albuterol (Proventil Neb Soln) 2.5 mg NEB ONETIME PRN PRN Reason: Wheezing Atropine Sulfate (Atropine 0.1 Mg/Ml) 0.5 mg IVPUSH ASDIRECTED PRN PRN Reason: Hypo-perfusion Atropine Sulfate (Atropine 0.1 Mg/Ml) 1 mg IVPUSH ASDIRECTED PRN PRN Reason: Hypo-Perfusion Dextrose/Water (Dextrose 50% In Water) 50 ml IVPUSH ASDIRECTED PRN PRN Reason: Hypoglycemia Epinephrine HCl (Epinephrine 1:10,000) 1 mg IVPUSH ASDIRECTED PRN PRN Reason: ACLS Guidelines Fentanyl (Sublimaze) Confirm Administered Dose 250 mcg .ROUTE .STK-MED ONE Stop: 08/02/18 08:44 Fentanyl (Sublimaze) 50 mcg IVPUSH Q5M PRN PRN Reason: Pain Lactated Ringer's (Ringers, Lactated) 1,000 mls @ 100 mls/hr IV ASDIRECTED FAY Last Admin: 08/02/18 08:45 Dose: 100 mls/hr Lidocaine (Xylocaine-Mpf 2%) Confirm Administered Dose 5 ml .ROUTE .STK-MED ONE Stop: 08/02/18 08:44 Midazolam HCl (Versed 1 Mg/Ml) Confirm Administered Dose 2 mg .ROUTE .STK-MED ONE Stop: 08/02/18 08:44 Naloxone HCl (Narcan) 0.1 mg IVPUSH ASDIRECTED PRN PRN Reason: Respiratory Depression Ondansetron HCl (Zofran) Confirm Administered Dose 4 mg .ROUTE .STK-MED ONE Stop: 08/02/18 08:44 Propofol (Diprivan 20 Ml) Confirm Administered Dose 200 mg .ROUTE .STK-MED ONE Stop: 08/02/18 08:44 Sodium Chloride (Saline Flush) 10 ml FLUSH ASDIRECTED PRN PRN Reason: Keep Vein Open Sodium Chloride (Saline Flush) 2.5 ml FLUSH ASDIRECTED PRN PRN Reason: Keep Vein Open Sodium Chloride (Normal Saline) 10 ml IV ASDIRECTED PRN PRN Reason: IV Use - Exam General: Reports: Alert, Oriented HEENT: Reports: Pupils Equal, Pupils Reactive, EOMI, Mucous Membr. Moist/[place] Neck: Reports: Supple Lungs: Reports: Clear to Auscultation, Normal Respiratory Effort Cardiovascular: Reports: Regular Rate, Regular Rhythm GI/Abdominal Exam: Normal Bowel Sounds, Soft, Non-Tender, No Organomegaly, No Distention, No Abnormal Bruit, No Mass, Pelvis Stable (Female) Exam: Normal External Exam, Normal Speculum Exam, Normal Bimanual Exam Rectal (Female) Exam: Normal Exam, Normal Rectal Tone Back Exam: Reports: Normal Inspection, Full Range of Motion Extremities: Normal Inspection, Normal Range of Motion, Non-Tender, No Pedal Edema, Normal Capillary Refill Skin: Reports: Warm, Dry, Intact Wound/Incisions: Reports: Healing Well Neurological: Reports: No New Focal Deficit Psy/Mental Status: Reports: Alert, Normal Affect, Normal Mood
--- NOTE | 2018-08-02 19:07 | OR ---
SURGEON: Jairo Quintana MD DATE OF PROCEDURE: PREOPERATIVE DIAGNOSIS: Lost intrauterine device. POSTOPERATIVE DIAGNOSIS: Lost intrauterine device. OPERATION PERFORMED: Hysteroscopy, attempt to removal of the IUD. SOIL FIELD TECHNICIAN: OR tech. ANESTHESIA: LMA, Mr. Jame Kessler. ESTIMATED BLOOD LOSS: 25 mL or less. COMPLICATIONS: None. FINDING: Empty uterus. There was no evidence of IUD and planning to use KUB postoperatively to see if the IUD is in the peritoneal cavity. PROCEDURE IN DETAIL: The patient was brought to the OR, properly identified, she had lost IUD and attempt to remove in the office was unsuccessful. Ultrasound confirmed the presence of the IUD, and the patient is brought to the OR with the intention of doing hysteroscopy, and removal of the IUD. After adequate level of anesthesia, the patient was placed in lithotomy position, prepped and draped in sterile fashion as usual. Time-out was taken and then weighted speculum was placed in the vagina. Single-tooth tenaculum was applied to the cervix. The cervix sequentially dilated to accommodate the hysteroscope. Hysteroscopy is performed and visualizing the entire uterine cavity, the IUD was not there and it is totally empty, so I am finalizing at this time that the IUD is probably outside the uterus and may be attached to the back of the uterus and I was planning to do a KUB x-ray in the recovery room to locate the IUD and make a decision after that. Satisfied with these findings, the procedure ended. The instrument and sponge count was correct. The patient tolerated the procedure well and went to recovery room in stable general condition. KEITH / ROLF /[id number]
== END 2018-08-02 11:45 | disposition home or self-care (01) ==
LOC: MW.SDS 08:03
PROVIDERS: ATTEND Obstetrics & Gynecology
DX: T83.32XA Displacement of intrauterine contraceptive device, initial encounter (principal); N92.0 Excessive and frequent menstruation with regular cycle
CPT/HCPCS: 58555; 74018; 81025; J2001; J2250; J2405; J2704; J3010; J7120; 00952

== ENCOUNTER 2018-08-09 08:44 | Day surgery (SDC) | payer BC ==
[~2018-08-09 08:44] MED LIST changes: +Fluorescein 5 ML Vial ONE; +Sodium Chloride 0.9% 10 ML SDV IV PRN; +Sodium Chloride 0.9% 10 ML Syringe FLUSH PRN; +Sodium Chloride 0.9% 2.5 ML Syringe FLUSH PRN
--- NOTE | 2018-08-09 10:33 | PCM.PREANE ---
Preanesthetic Assessment - Anesthesia/Transfusion/Family Hx Anesthesia History: Prior Anesthesia Without Reaction Transfusion History: No Prior Transfusion(s) - Review of Systems General: No Symptoms Pulmonary: No Symptoms Cardiovascular: No Symptoms Gastrointestinal: No Symptoms Neurological: No Symptoms Other: Reports: None - Physical Assessment NPO Status Date: 08/08/18 NPO Status Time: 22:00 O2 Sat by Pulse Oximetry: 95 Respiratory Rate: 16 Vital Signs: Last Vital Signs Temp 35.8 C 08/09/18 09:30 Pulse 80 08/09/18 09:30 Resp 16 08/09/18 09:30 BP 105/70 08/09/18 09:30 Pulse Ox 95 08/09/18 09:30 Height: 1.65 m Weight: 87.997 kg ASA Class: 2 Mental Status: Alert & Oriented x3 Airway Class: Mallampati = 2 Dentition: Reports: Normal Dentition Thyro-Mental Finger Breadths: 3 Mouth Opening Finger Breadths: 3 ROM/Head Extension: Full Lungs: Clear to Auscultation, Normal Respiratory Effort Cardiovascular: Regular Rate, Regular Rhythm - Lab Values: Laboratory Last Values Urine HCG, Qual NEGATIVE (NEGATIVE) 08/09/18 09:20 - Allergies Allergies/Adverse Reactions: Allergies Allergy/AdvReac Type Severity Reaction Status Date / Time adhesive tape Allergy Rash Verified 08/06/18 15:22 - Acknowledgements Anesthesia Type Planned: General Anesthesia Pt an Appropriate Candidate for the Planned Anesthesia: Yes Alternatives and Risks of Anesthesia Discussed w Pt/Guardian: Yes Pt/Guardian Understands and Agrees with Anesthesia Plan: Yes PreAnesthesia Questionnaire HEENT History: Reports: Other (See Below) Other HEENT History: wears glasses Cardiovascular History: Reports: None Respiratory History: Reports: None Gastrointestinal History: Reports: None Genitourinary History: Reports: None TRUCK HOPPER History: Reports: Other OB/BYN History: Musculoskeletal History: Reports: None Neurological History: Reports: Other (See Below) Other Neuro History: hx of motion sickness Psychiatric History: Reports: Other (See Below) Other Psychiatric History: depression Endocrine/Metabolic History: Reports: Obesity/BMI 30+ Hematologic History: Reports: None Immunologic History: Reports: None Oncologic (Cancer) History: Reports: None Dermatologic History: Reports: None - Infectious Disease History Infectious Disease History: Reports: Chicken Pox - Past Surgical History Head Surgeries/Procedures: Reports: None HEENT Surgical History: Reports: Oral Surgery Other HEENT Surgeries/Procedures: wisdom teeth Cardiovascular Surgical History: Reports: None Respiratory Surgical History: Reports: None GI Surgical History: Reports: None Female Surgical History: Reports: Other (See Below) Other Female Surgeries/Procedures: hysteroscopy 1 week ago Endocrine Surgical History: Reports: None Neurological Surgical History: Reports: None Musculoskeletal Surgical History: Reports: None Dermatological Surgical History: Reports: None - SUBSTANCE USE Smoking Status *Q: Former Smoker Days Per Week of Alcohol Use: 0 (occasional etoh) Recreational Drug Use History: No - HOME MEDS Home Medications: Home Meds Ibuprofen [Motrin] 800 mg PO ASDIRECTED PRN 07/30/18 [History] - CURRENT (IN HOUSE) MEDS Current Meds: Current Medications Lactated Ringer's (Ringers, Lactated) 1,000 mls @ 125 mls/hr IV ASDIRECTED FAY Last Admin: 08/09/18 09:35 Dose: 125 mls/hr Sodium Chloride (Saline Flush) 10 ml FLUSH ASDIRECTED PRN PRN Reason: Keep Vein Open Sodium Chloride (Saline Flush) 2.5 ml FLUSH ASDIRECTED PRN PRN Reason: Keep Vein Open Sodium Chloride (Normal Saline) 10 ml IV ASDIRECTED PRN PRN Reason: IV Use Discontinued Medications Fluorescein Sodium (Ak-Fluor) Confirm Administered Dose 5 ml .ROUTE .STK-MED ONE Stop: 08/09/18 08:26
[2018-08-09] MEDS ORDERED: Propofol 200 MG/20 ML SDV ONE (12:28)
[2018-08-09] MEDS ORDERED: fentaNYL 100 MCG/2 ML SDV ONE (12:28)
[2018-08-09] MEDS ORDERED: Rocuronium 100 MG/10 ML Syringe ONE (12:28)
[2018-08-09] MEDS ORDERED: Midazolam 1 MG/ML 2 ML SDV ONE (12:28)
[2018-08-09] MEDS ORDERED: Lidocaine 2% 5 ML SDV ONE (12:28)
[2018-08-09] MEDS ORDERED: Ondansetron 4 MG/2 ML SDV ONE (13:19)
[2018-08-09] MEDS ORDERED: Dexamethasone 4 MG/ML 5 ML MDV ONE (13:19)
[2018-08-09] MEDS ORDERED: Glycopyrrolate 0.2 MG/ML SDV ONE ×2 (13:20)
[2018-08-09] MEDS ORDERED: Neostigmine Methylsulfate 1 MG/ML 5 ML Syringe ONE (13:20)
[2018-08-09] MEDS ORDERED: Octyl 2-Cyanoacrylate 1 Tube ONE (13:22)
[2018-08-09] MEDS ORDERED: Acetaminophen/oxyCODONE 325-5 MG Tab PO PRN ×2 (13:29)
[2018-08-09] MEDS ORDERED: Ketorolac 30 MG/ML SDV IVPUSH PRN (13:29)
[2018-08-09] MEDS ORDERED: Morphine 4 MG/ML Syringe IVPUSH PRN (13:29)
[2018-08-09] MEDS ORDERED: Ketorolac 30 MG/ML SDV IVPUSH ONE (13:29)
[2018-08-09] MEDS ORDERED: Ondansetron 4 MG/2 ML SDV IVPUSH PRN (13:29)
[2018-08-09] MEDS ORDERED: Promethazine 25 MG/ML SDV IM PRN (13:29)
--- NOTE | 2018-08-09 13:33 | PCM.OPNOTE ---
- General Post-Op/Procedure Note Date of Surgery/Procedure: 08/09/18 Operative Procedure(s): Dignostic Laparoscopy Pre Op Diagnosis: Lost IUD Post-Op Diagnosis: Same Anesthesia Technique: General LMA Primary Surgeon: Jairo Quintana EBL in mLs: 20 Complications: None Condition: Good
[2018-08-09] MEDS ORDERED: Sugammadex Sodium 200 MG/2 ML VIAL ONE (13:34)
--- NOTE | 2018-08-09 13:34 | PCM.DCSUM1 ---
Discharge Summary - Hospital Course Diagnosis: Stroke: No - Discharge Data Discharge Date: 08/09/18 Discharge Disposition: Home, Self-Care 01 Condition: Good - Patient Summary/Data Operative Procedure(s) Performed: Dignostic Laparoscopy - Patient Instructions Diet: Usual Diet as Tolerated Activity: As Tolerated Driving: Do Not Drive Showering/Bathing: May Shower Wound/Incision Care: Keep Operative Site/Wound Site Clean and Dry Notify Provider of: Fever, Increased Pain, Nausea and/or Vomiting - Discharge Plan Home Medications: Home Meds Ibuprofen [Motrin] 800 mg PO ASDIRECTED PRN 07/30/18 [History] - Discharge Summary/Plan Comment DC Time >30 min.: Yes - General Info Date of Service: 08/09/18 Functional Status: Reports: Pain Controlled - Review of Systems General: Reports: No Symptoms HEENT: Reports: No Symptoms Pulmonary: Reports: No Symptoms Cardiovascular: Reports: No Symptoms Gastrointestinal: Reports: No Symptoms Genitourinary: Reports: No Symptoms Musculoskeletal: Reports: No Symptoms Skin: Reports: No Symptoms Neurological: Reports: No Symptoms Psychiatric: Reports: No Symptoms - Patient Data Vitals - Most Recent: Last Vital Signs Temp 35.8 C 08/09/18 09:30 Pulse 80 08/09/18 09:30 Resp 16 08/09/18 10:55 BP 105/70 08/09/18 09:30 Pulse Ox 95 08/09/18 10:55 Weight - Most Recent: 87.997 kg Lab Results - Last 24 hrs: Laboratory Results - last 24 hr 08/09/18 Range/Units 09:20 Urine HCG, Qual NEGATIVE (NEGATIVE) Med Orders - Current: Current Medications Lactated Ringer's (Ringers, Lactated) 1,000 mls @ 125 mls/hr IV ASDIRECTED FAY Last Admin: 08/09/18 09:35 Dose: 125 mls/hr Ketorolac Tromethamine (Toradol) 30 mg IVPUSH ONETIME ONE Stop: 08/09/18 13:30 Ketorolac Tromethamine (Toradol) 30 mg IVPUSH Q6H PRN PRN Reason: Pain (severe 7-10) Stop: 08/14/18 13:29 Morphine Sulfate (Morphine) 4 mg IVPUSH Q2H PRN PRN Reason: Pain (severe 7-10) Ondansetron HCl (Zofran) 4 mg IVPUSH Q6H PRN PRN Reason: Nausea/Vomiting Oxycodone/Acetaminophen (Percocet 325-5 Mg) 1 tab PO Q4H PRN PRN Reason: Pain (moderate 4-6) Oxycodone/Acetaminophen (Percocet 325-5 Mg) 2 tab PO Q4H PRN PRN Reason: Pain (moderate 4-6) Promethazine HCl (Phenergan) 25 mg IM Q6H PRN PRN Reason: Nausea/Vomiting Sodium Chloride (Saline Flush) 10 ml FLUSH ASDIRECTED PRN PRN Reason: Keep Vein Open Sodium Chloride (Saline Flush) 2.5 ml FLUSH ASDIRECTED PRN PRN Reason: Keep Vein Open Sodium Chloride (Normal Saline) 10 ml IV ASDIRECTED PRN PRN Reason: IV Use Discontinued Medications Dexamethasone (Dexamethasone) Confirm Administered Dose 20 mg .ROUTE .STK-MED ONE Stop: 08/09/18 13:20 Fentanyl (Sublimaze) Confirm Administered Dose 100 mcg .ROUTE .STK-MED ONE Stop: 08/09/18 12:29 Fluorescein Sodium (Ak-Fluor) Confirm Administered Dose 5 ml .ROUTE .STK-MED ONE Stop: 08/09/18 08:26 Glycopyrrolate (Robinul) Confirm Administered Dose 0.4 mg .ROUTE .STK-MED ONE Stop: 08/09/18 13:21 Glycopyrrolate (Robinul) Confirm Administered Dose 0.2 mg .ROUTE .STK-MED ONE Stop: 08/09/18 13:21 Lidocaine (Xylocaine-Mpf 2%) Confirm Administered Dose 5 ml .ROUTE .STK-MED ONE Stop: 08/09/18 12:29 Midazolam HCl (Versed 1 Mg/Ml) Confirm Administered Dose 2 mg .ROUTE .STK-MED ONE Stop: 08/09/18 12:29 Neostigmine Methylsulfate (Neostigmine) Confirm Administered Dose 5 mg .ROUTE .STK-MED ONE Stop: 08/09/18 13:21 Octyl Cyanoacrylate (Dermabond Advance) Confirm Administered Dose 1 applic .ROUTE .STK-MED ONE Stop: 08/09/18 13:23 Ondansetron HCl (Zofran) Confirm Administered Dose 4 mg .ROUTE .STK-MED ONE Stop: 08/09/18 13:20 Propofol (Diprivan 20 Ml) Confirm Administered Dose 200 mg .ROUTE .STK-MED ONE Stop: 08/09/18 12:29 Rocuronium Clarence (Zemuron) Confirm Administered Dose 100 mg .ROUTE .STK-MED ONE Stop: 08/09/18 12:29 - Exam General: Reports: Alert, Oriented HEENT: Reports: Pupils Equal, Pupils Reactive, EOMI, Mucous Membr. Moist/[place] Neck: Reports: Supple Lungs: Reports: Clear to Auscultation, Normal Respiratory Effort Cardiovascular: Reports: Regular Rate, Regular Rhythm GI/Abdominal Exam: Normal Bowel Sounds, Soft, Non-Tender, No Organomegaly, No Distention, No Abnormal Bruit, No Mass, Pelvis Stable (Female) Exam: Normal External Exam, Normal Speculum Exam, Normal Bimanual Exam Rectal (Female) Exam: Normal Exam, Normal Rectal Tone Back Exam: Reports: Normal Inspection, Full Range of Motion Extremities: Normal Inspection, Normal Range of Motion, Non-Tender, No Pedal Edema, Normal Capillary Refill Skin: Reports: Warm, Dry, Intact Wound/Incisions: Reports: Healing Well Neurological: Reports: No New Focal Deficit Psy/Mental Status: Reports: Alert, Normal Affect, Normal Mood
[2018-08-09] MEDS ORDERED: Ketorolac 30 MG/ML SDV ONE (13:37)
[2018-08-09] MEDS ORDERED: Acetaminophen 1,000 MG in Premix Bag 1 BAG IV ONE (13:45)
[2018-08-09] MEDS ORDERED: fentaNYL 100 MCG/2 ML SDV IVPUSH PRN (14:17)
[2018-08-09] MEDS ORDERED: HYDROmorphone 2 MG/ML SDV IVPUSH PRN (14:17)
[2018-08-09] MEDS ORDERED: HYDROmorphone 2 MG/ML Syringe ONE (14:25)
--- NOTE | 2018-08-09 14:57 | PCM.POSTAN ---
POST ANESTHESIA ASSESSMENT - MENTAL STATUS Mental Status: Alert, Oriented - RESPIRATORY Respiratory Status: Respiratory Rate WNL, Airway Patent, O2 Saturation Stable - CARDIOVASCULAR CV Status: Pulse Rate WNL, Blood Pressure Stable - GASTROINTESTINAL GI Status: No Symptoms - PAIN Pain Score: 3 - POST OP HYDRATION Hydration Status: Adequate & Stable - OBSERVATIONS Free Text/Narrative:: The patient tolerated the procedure well. There were no apparent anesthetic complications at this time.
[2018-08-09] MEDS ORDERED: Ondansetron 4 MG/2 ML SDV IVPUSH ONE (15:29)
[2018-08-09 15:31] VITALS: BP 126/60
--- NOTE | 2018-08-09 16:23 | PCM48HPAN ---
Post Anesthesia Note - EVALUATION WITHIN 48HRS OF ANESTHETIC Vital Signs in Normal Range: Yes Patient Participated in Evaluation: Yes Respiratory Function Stable: Yes Airway Patent: Yes Cardiovascular Function Stable: Yes Hydration Status Stable: Yes Pain Control Satisfactory: Yes Nausea and Vomiting Control Satisfactory: Yes Mental Status Recovered: Yes Resp Rate: 16 - COMMENTS/OBSERVATIONS Free Text/Narrative:: The patient has no complaints at this time. Discharge home per criteria.
--- NOTE | 2018-08-09 20:47 | OR ---
SURGEON: Jairo Quintana MD DATE OF PROCEDURE: PREOPERATIVE DIAGNOSIS: Lost intrauterine contraceptive device. POSTOPERATIVE DIAGNOSIS: Lost intrauterine contraceptive device. OPERATION PERFORMED: Multiple puncture diagnostic laparoscopy, retrieval of the lost intrauterine contraceptive device from the pelvis and in the intraperitoneal cavity. ACID MIXER: OR tech. ANESTHESIA: General endotracheal intubation. ESTIMATED BLOOD LOSS: 20 mL. COMPLICATIONS: None. FINDINGS: Lost IUD is adherent to the serosa of the sigmoid colon and it is in the true pelvis cavity. INDICATIONS FOR SURGERY: The patient has a lost IUD. She had hysteroscopy yesterday which shows the intrauterine cavity is empty. KUB has confirmed the presence of the IUD in the pelvis. PROCEDURE IN DETAIL: The patient was brought to the OR, properly identified, and after adequate level of anesthesia, the patient was placed in lithotomy position with an access to the abdomen and the vagina. The patient was prepped and draped in sterile fashion as usual. A time-out was taken, and weighted speculum was placed in the vagina. A [employer] manipulator was placed in the uterus for manipulation. The operation shifted abdominally. Stab wound was done beneath the umbilicus. A Veress needle was then placed in the peritoneal cavity and the cavity insufflated with 2.5 L of carbon dioxide. A skin incision was utilized to accommodate 5 mm trocar utilizing the Visiport technique. The peritoneal cavity was entered. Two 5 mm trocar in the left and the right iliac fossa were done under direct vision. The patient placed in steep Trendelenburg and then once we did that, the intestine was retracted. Then, the IUD was seen lying on top of the sigmoid colon. It was not penetrating the sigmoid colon, so the IUD was retrieved and removed laparoscopically and sent for histopathology. Once that accomplished then instrument and hardware retrieved from the abdomen and the vagina. The multiple laparoscopic incision was closed in layers. Instrument and sponge count was correct. The patient tolerated the procedure well, went to recovery room in stable general condition. KEITH / ROLF /[id number]
== END 2018-08-09 16:29 | disposition home or self-care (01) ==
LOC: MW.SDS 08:44
PROVIDERS: ATTEND Obstetrics & Gynecology
DX: T83.32XA Displacement of intrauterine contraceptive device, initial encounter (principal); Z79.1 Long term (current) use of non-steroidal anti-inflammatories (NSAID); Z79.3 Long term (current) use of hormonal contraceptives; Z91.048 Other nonmedicinal substance allergy status
CPT/HCPCS: 58301; 81025; A9270; J0131; J1100; J1170; J1885; J2001; J2250; J2405; J2550; J2704; J3010; J3490; J7120